=== PATIENT | female | born 1960 | race Two or more races ===

== ENCOUNTER → 2018-12-14 | Outpatient (CLI) | payer MEDICAID ==
--- NOTE | 2018-12-14 12:10 | RAD ---
ABDOMEN LTD History: Hepatitis C, cirrhosis Comparison: None. Findings: Multiple sonographic images of the abdomen are submitted. Midline structures are poorly seen including pancreas, distal abdominal aorta, and segments of the liver due to bowel gas. There is segmental visualization of the inferior vena cava. Gallbladder is present without intraluminal abnormality, wall thickening, pericholecystic fluid. Right lobe of the liver measured 15.7 cm longitudinal. There is diffuse coarsening of the hepatic echotexture. Common bile duct is within normal limits about 0.2 cm. Right kidney measured 10.5 x 4 x 3.9 cm, no hydronephrosis. Abdominal aortic caliber proximally measured 1.9 cm. Impression: 1. There is diffuse coarsening of the hepatic echotexture as may be seen with steatosis or other hepatocellular disease. Electronically signed by: Stalin Mayo MD (12/14/2018 12:07 PM) [id number]
== END | disposition home or self-care (01) ==
LOC: US 11:22
PROVIDERS: ATTEND Internal Medicine Gastroenterology
DX: K74.60 Unspecified cirrhosis of liver (principal); B19.20 Unspecified viral hepatitis C without hepatic coma
CPT/HCPCS: 76705

== ENCOUNTER → 2020-07-26 | Outpatient (CLI) | payer MEDICAID ==
--- NOTE | 2020-07-26 12:23 | RAD ---
PA and lateral chest. HISTORY: Short of air, cough, congestion PA and lateral views were taken of the chest. There is a large hiatus hernia with most of the stomach in the chest. Lungs are free of acute infiltrates. There is no pleural effusion. Heart is within nor mal limits in size. IMPRESSION: 1. Large hiatus hernia. 2. No acute infiltrates. Electronically signed by: You Ang MD (07/26/2020 12:21 PM) [id number]
== END ==
LOC: DXRAD 12:04
PROVIDERS: ATTEND Nurse Practitioner Family
DX: R05 Cough (principal); K44.9 Diaphragmatic hernia without obstruction or gangrene
CPT/HCPCS: 71046

== ENCOUNTER 2020-08-09 07:24 | Emergency (ER) | payer MEDICAID ==
[~2020-08-09] VITALS: Ht 170.2 cm; Wt 90.0 kg
[2020-08-09 07:24] VITALS: BP 137/83
[2020-08-09] MEDS ORDERED: KETOROLAC 60 MG/2 ML VIAL. IM ONE (07:45)
[2020-08-09] MEDS ORDERED: ORPHENADRINE CITRATE 60 MG/2 ML VIAL. IM ONE (07:45)
--- NOTE | 2020-08-09 07:50 | PHYS DOC ---
General Adult EDM: Chief Complaint: BACK PAIN OR INJURY HPI: HPI: Patient is a 59-year-old female coming in for right-sided low back and sciatic pain. Patient states the pain has been present for about 2 weeks which she attributes to head pain after hernia surgery. She says she did not have any falls or heavy lifting. Says she woke up with the pain is been getting gradually worse. Seen her primary care provider has been taking gabapentin and oxycodone without improvement. Patient states she has had some darker urine and constipation. She also says that she was recently been seen for multiple things including a sinus infection where she was told that she had an infection foll owing Covid swab. She then was seen in urgent care for wheezing and prescribed inhaler. Patient now complaining of low back pain. States the pain radiates to her right hip into her right anterior thigh down to her skelton. Has an MRI scheduled in 6 days, had unremarkable lumbar x-rays by her primary care provider. Review of Systems: Review of Systems: All other systems within normal limits except for as noted in the HPI Current Medications: Current Meds: Current Medications Medications (Trade) Dose Ordered Sig/Stanton Start Time Stop Time Status Last Admin Dose Admin Ketorolac Tromethamine (Toradol Im) 60 mg 1X ONCE 08/09/20 07:45 08/09/20 07:46 UNV Orphenadrine Citrate (Norflex) 60 mg 1X ONCE 08/09/20 07:45 08/09/20 07:46 UNV Allergies: Allergies: Allergies Coded Allergies Type Severity Reaction Last Updated Verified ciprofloxacin Allergy Unknown 08/06/20 No codeine Allergy Unknown 08/06/20 No Physical Exam: PE: Constitutional: Well developed, well nourished, no acute distress, non-toxic appearance. [] HENT: Normocephalic, atraumatic, bilateral external ears normal, nose normal. [] Eyes: PERRLA, conjunctiva normal, no discharge. [] Neck: No rigidity, supple, no stridor. [] Cardiovascular: Regular rate and rhythm, brisk cap refill [] Lungs & Thorax: Non labored symmetric respirations, no tachypnea or respiratory distress [] Abdomen: Soft, nondistended. Skin: Warm, dry, no erythema, no rash. [] Back: Unremarkable, no point spinal tenderness or deformity. Tenderness over right SI joint. Extremities: No deformities, range of motion grossly intact, no lower extremity edema [] Neurologic: Alert and oriented X 3, no focal deficits noted. [] Psychologic: Affect normal, judgement normal, mood normal. [] EKG: EKG: [] Radiology/Procedures: Radiology/Procedures: CT LUMBAR SPINE WO History:Reason: left pain / Spl. Instructions: / History: Technique: Noncontrast CT was performed of the lumbar spine. Multiplanar reconstructions were performed. Exposure: One or more of the following individualized dose reduction techniques were utilized for this examination: 1. Automated exposure control 2. Adjustment of the mA and/or kV according to patient size 3. Use of iterative reconstruction technique. Comparison: None Findings: Mild retrolisthesis L4 on L5. Normal vertebral body height. No fracture. Nonobstructing right intrarenal calculus. No hydronephrosis. Left adrenal adenomatous thickening. Sacral Tarlov cyst on the right mid sacrum S2. T12-L1: No canal or neuroforaminal narrowing. L1-L2: Minimal disc bulge. No canal or neuroforaminal narrowing. Mild facet arthropathy. L2-L3: Small disc bulge. Mild facet arthropathy. No canal or neuroforaminal narrowing. L3-L4: Vacuum disc phenomenon. Broad-based disc bulge with slight disc extrusion. Mild facet arthropathy. No canal narrowing. Right foraminal disc protrusion. Moderate right neuroforaminal narrowing. No left neuroforaminal narrowing. L4-L5: Slight retrolisthesis. Disc bulge. Moderate facet arthropathy. No canal narrowing. No neuroforaminal narrowing. L5-S1: Vacuum disc phenomenon. Slight disc bulge. Moderate facet arthropathy. No canal narrowing. Mild neuroforaminal narrowing. Impression: 1. No acute fracture or subluxation of the lumbar spine. 2. Multilevel lumbar spondylosis. 3. Neuroforaminal narrowing most prominent right L3-L4. 4. Prominent sacral Tarlov cyst. [] Heart Score: C/O Chest Pain: No Risk Factors: Risk Factors: DM, Current or recent (<one month) smoker, HTN, HLP, family history of CAD, obesity. Risk Scores: Score 0 - 3: 2.5% MACE over next 6 weeks - Discharge Home Score 4 - 6: 20.3% MACE over next 6 weeks - Admit for Clinical Observation Score 7 - 10: 72.7% MACE over next 6 weeks - Early Invasive Strategies Course & Med Decision Making: Course & Med Decision Making Pertinent Labs and Imaging studies reviewed. (See chart for details) Pain reduced from 10-5. Discussed with patient we will not build to completely alleviate her pain but being a more manageable. Advised to follow-up with her primary care for MRI. [] [place] Disclaimer: Dragon Disclaimer: This electronic medical record was generated, in whole or in part, using a voice recognition dictation system. Departure Departure: Impression: Primary Impression: Lumbar back pain with radiculopathy affecting right lower extremity Disposition: LEFT AWOL/ELOPED Condition: STABLE Referrals: GLORIA MARTINEZ (PCP) Patient Instructions: Back Pain, Adult Scripts Ketorolac Tromethamine (KETOROLAC TROMETHAMINE) 10 Mg Tablet 1 TAB PO TID PRN for PAIN for 5 Days, #15 TAB Prov: ZENOBIA BOBBY MD 08/09/20 Cyclobenzaprine Hcl (CYCLOBENZAPRINE HCL) 10 Mg Tablet 1 TAB PO TID PRN for MUSCLE PAIN for 5 Days, #15 TAB Prov: ZENOBIA BOBBY MD 08/09/20 ZENOBIA BOBBY MD Aug 09, 2020 07:50
--- NOTE | 2020-08-09 08:20 | RAD ---
CT LUMBAR SPINE WO History:Reason: left pain / Spl. Instructions: / History: Technique: Noncontrast CT was performed of the lumbar spine. Multiplanar reconstructions were perform ed. Exposure: One or more of the following individualized dose reduction techniques were utilized for thi s examination: 1. Automated exposure control 2. Adjustment of the mA and/or kV according to patient size 3. Use of iterative reconstruction technique. Comparison: None Findings: Mild retrolisthesis L4 on L5. Normal vertebral body height. No fracture. Nonobstructing right intrarenal calculus. No hydronephrosis. Left adrenal adenomatous thickening. Sacral Tarlov cyst on the right mid sacrum S2. T12-L1: No canal or neuroforaminal narrowing. L1-L2: Minimal disc bulge. No canal or neuroforaminal narrowing. Mild facet arthropathy. L2-L3: Small disc bulge. Mild facet arthropathy. No canal or neuroforaminal narrowing. L3-L4: Vacuum disc phenomenon. Broad-based disc bulge with slight disc extrusion. Mild facet arthrop athy. No canal narrowing. Right foraminal disc protrusion. Moderate right neuroforaminal narrowing. N o left neuroforaminal narrowing. L4-L5: Slight retrolisthesis. Disc bulge. Moderate facet arthropathy. No canal narrowing. No neurofo raminal narrowing. L5-S1: Vacuum disc phenomenon. Slight disc bulge. Moderate facet arthropathy. No canal narrowing. Mi ld neuroforaminal narrowing. Impression: 1. No acute fracture or subluxation of the lumbar spine. 2. Multilevel lumbar spondylosis. 3. Neuroforaminal narrowing most prominent right L3-L4. 4. Prominent sacral Tarlov cyst. Electronically signed by: García Liao DO (08/09/2020 8:17 AM) [facility]
[2020-08-09 08:45] LABS: BASO # 0.1 x10^3/uL (0.0-0.2); BASO % 1 % (0-3); EOS # 0.2 x10^3/uL (0.0-0.7); EOS % 3 % (0-3); HEMATOCRIT 27.6 % (36.0-47.0); HEMOGLOBIN 8.3 g/dL (12.0-15.5); LYMPH # 1.2 x10^3/uL (1.0-4.8); LYMPH % 19 % (24-48); MEAN CORPUSCULAR HEMOGLOBIN 20 pg (25-35); MEAN CORPUSCULAR HGB CONC 30 g/dL (31-37); MEAN CORPUSCULAR VOLUME 65 fL (79-100); MONO # 0.4 x10^3/uL (0.0-1.1); MONO % 6 % (0-9); NEUT # 4.5 x10^3uL (1.8-7.7); NEUT % 71 % (31-73); PLATELET COUNT 225 x10^3/uL (140-400); RED BLOOD COUNT 4.27 x10^6/uL (3.50-5.40); RED CELL DISTRIBUTION WIDTH 19.6 % (11.5-14.5); WHITE BLOOD COUNT 6.4 x10^3/uL (4.0-11.0)
[2020-08-09 08:58] LABS: CREATININE 0.7 mg/dL (0.6-1.0); GFR 85.6; POTASSIUM 3.7 mmol/L (3.5-5.1)
[2020-08-09 09:02] LABS: BILIRUBIN,URINE NEG (NEG); CLARITY,URINE HAZY; COLOR,URINE YELLOW; GLUCOSE,URINE NEG (NEG); NITRITE,URINE NEG (NEG); RBC,URINE OCC /HPF (0-2); UROBILINOGEN,URINE 0.2 mg/dL (0.2 mg/dL)
[2020-08-09 09:03] LABS: BACTERIA,URINE FEW /HPF (0-FEW); SQUAMOUS EPITHELIAL CELL,UR MANY /LPF
[2020-08-09 09:04] LABS: ALBUMIN 3.2 g/dL (3.4-5.0); ALBUMIN/GLOBULIN RATIO 0.8 (1.0-1.7); C REACTIVE PROTEIN 3.2 mg/L (0-3.3); TOTAL BILIRUBIN 0.3 mg/dL (0.2-1.0)
[2020-08-09] MEDS ORDERED: CYCL-331 PO (09:25)
[2020-08-09] MEDS ORDERED: KETO10TA PO (09:25)
[2020-08-09] MEDS ORDERED: DICYCLOMINE 20 MG/2 ML VIAL. IM ONE (09:30)
[2020-08-09 14:10] LABS: POLYCHROMASIA PRESENT
[2020-08-09 14:11] LABS: ANISOCYTOSIS PRESENT; OVALOCYTES PRESENT; TEAR DROP CELLS PRESENT
[2020-08-09 14:12] LABS: MICROCYTOSIS PRESENT
[2020-08-09 14:13] LABS: BURR CELLS PRESENT; HYPOCHROMIA PRESENT
[2020-08-09 14:14] LABS: PLT ESTIMATE ADEQUATE (ADEQUATE)
== END 2020-08-09 09:27 | disposition left against medical advice (07) ==
LOC: ER 07:24
DX: M54.16 Radiculopathy, lumbar region (principal); Z88.1 Allergy status to other antibiotic agents; Z88.5 Allergy status to narcotic agent
CPT/HCPCS: 36415; 72131; 80053; 81001; 85025; 86140; 87086; 96372; 99284; J1885; J2360